=== PATIENT | male | born 1970 | race Caucasian/White ===

== ENCOUNTER 2017-04-19 05:08 | Day surgery (SDC) | payer BC, OTHER ==
[~2017-04-19] VITALS: Ht 162.6 cm; Wt 75.7 kg
--- NOTE | ~2017-04-19 | O ---
[facility] [place] [address] OPERATIVE REPORT Name: JIM PALOMINO Room #: 150-6 [facility] M.R.#: [id number] Admission: 04/19/17 Attend Phys: Clayton Velasquez Discharge: Date of : 74 Report #: [id number] THIS REPORT FOR: //name// CC: JIE physician/PCP Clayton Price DATE OF SERVICE: 04/19/2017 PREOPERATIVE DIAGNOSES: Left knee pain, patellar tendon rupture, medial and lateral retinacular tears. POSTOPERATIVE DIAGNOSES: Left knee pain, patellar tendon rupture, medial and lateral retinacular tears. PROCEDURE PERFORMED: Open left knee patellar tendon repair, repair of the medial and lateral patellar retinaculum. SURGEON: Clayton Price MD. MASH PROCESSING OPERATOR: Kina Leone PA-C. ANESTHESIA: General with preoperative femoral nerve block. FLUIDS: 700 mL crystalloid. ESTIMATED BLOOD LOSS: Approximately 10 mL. DESCRIPTION OF PROCEDURE: After proper identification of the patient and operative site in preoperative holding area, the operative site was signed by myself. Prophylactic antibiotics given. The patient elected to receive a femoral nerve block after reviewing the risks, benefits, alternatives and potential complications with ____ After satisfactory block, the patient was brought back to the operative suite after induction of satisfactory general anesthesia. He was carefully positioned on the operative table. Left hip bump was placed, left lower extremity was elevated, tourniquet was applied to the operative site. The limb was sterilely prepped and draped in the usual manner. Limb was elevated and exsanguinated with an Esmarch. Tourniquet was inflated to 300 mmHg. Anterior midline approach was planned. Skin was incised sharply. Full thickness skin flaps were developed. The patient had a complex patellar tendon tear. The more superficial fibers were still attached to the patella, and this tore more in oblique manner through the fibers as they extended more distally. Approximately 50% of the tendon was still attached. There was more inferiorly based flap that was attached to the tibial tubercle. Frayed portion of the tendon edges were carefully debrided. There was tear extension that extended into the medial and lateral patellar retinaculum. The knee joint itself was thoroughly irrigated with normal saline. It was ligamentously [address] [address] OPERATIVE REPORT Name: JIM PALOMINO Room #: 150-6 [facility] Frances#: [id number] Admission: 04/19/17 Attend Phys: Clayton Velasquez Discharge: Date of : 74 Report #: [id number] stable. No obvious chondral injury was apparent. At this point, #2 FiberWires were placed with stitch manner through the patellar tendon and brought down one side back up the other. The tendon was only thick enough to accommodate two of these. Three drill holes were placed to the inferior aspect of the patella after it had been cleared of soft tissues, while still leaving the superior remaining fibers intact. After these were passed superiorly using a suture paser, the more inferior fibers of the patellar tendon that were still attached to tibia tubercle were then tied and repaired to the patella. This was nicely reduced, and then, the superior fibers were subsequently repaired individually with multiple passes to the remaining more posterior fibers using combination of #2 FiberWire and 0 Vicryl to complete this repair. The repair construct was stable with range of motion, and it was easily able to be flexed approximately 70 degrees without any significant appearing stress on the tendon. Patella appeared to be well centered within the trochlea. The knee was again thoroughly irrigated with normal saline. Medial and lateral right retinaculum was then repaired in a simple ioobpb-xa-abpaw manner with 0 Vicryl, subcutaneous tissues were closed with a combination of 0 Vicryl, 2-0 Vicryl, final skin closure was with jyoti. Sterile dressing was applied. He was placed with a hinged knee brace locked and full extension. The patient tolerated the procedure well and was anticipated to be discharged to recovery room in stable condition. By: [id number] Clayton Price MD /charlotte
[~2017-04-19 05:08] MED LIST: IBUPROFEN 200200 M1 PO; METHOCARBAMOL500 M2 PO; NAPROSYN500 MG PO; PERCOCET PO; TYLENOL EXTRA500 MG PO
[2017-04-19 12:00] VITALS: BP 118/69
== END 2017-04-19 15:33 | disposition home or self-care (01) ==
LOC: OR 05:08 → TBA 05:08 → OR 10:03
DX: S76.112A Strain of left quadriceps muscle, fascia and tendon, initial encounter (principal); X58.XXXA Exposure to other specified factors, initial encounter; Y93.9 Activity, unspecified; Y92.89 Other specified places as the place of occurrence of the external cause; Y99.9 Unspecified external cause status
CPT/HCPCS: 50010; 50101; 50386; 51412; 53337; 56521; 56525; 56526; 56530; 57091; 62110; 62900; 64042; 64043; 70005